=== PATIENT | male | born 1980 | race Caucasian/White ===

== ENCOUNTER 2025-01-23 06:17 | Emergency (ER) | payer OTHER ==
[2025-01-23] MEDS: KETOROLAC 15 MG/ML 1 ML VIAL IVP STA (06:41)
[2025-01-23] MEDS: diphenhydrAMINE 50 MG/ML 1 ML VIAL IVP STA (06:42)
[2025-01-23] MEDS: ONDANSETRON 4 MG/2 ML VIAL IVP STA (06:42)
--- NOTE | 2025-01-23 06:42 | ED ---
Abdominal Pain HPI - General Chief Complaint: Abdominal Pain Stated Complaint: Abdominal pain Time Seen by Provider: 01/23/25 06:19 Source: patient, EMS, RN notes reviewed Mode of arrival: EMS Limitations: no limitations - History of Present Illness Initial Comments: This is a 44-year-old male who presents to the emergency department for lower abdominal pain. Patient states that yesterday evening he started to develop pain in the lower abdomen followed by nausea and vomiting. States that overnight the pain intensified and he has been unable to keep anything down. His last bowel movement was a week ago. States that he is no longer passing gas. Denies any history of similar pain in the past. He is at [facility] for fentanyl and cocaine abuse and has been there for a week. MD Complaint: abdominal pain - Related Data Previous Rx's Medication Instructions Recorded Metoclopramide [Reglan] 10 mg PO Q6H PRN #20 tab 01/23/25 Ondansetron Odt [Zofran Odt] 4 mg PO Q8HR PRN #20 tab 01/23/25 polyethylene glycoL 3350 17 gm PO DAILY PRN #255 gm 01/23/25 [Polyethylene Glycol 3350] Allergies Allergy/AdvReac Type Severity Reaction Status Date / Time No Known Allergies Allergy Verified 01/23/25 06:34 Review of Systems ROS Statement: Those systems with pertinent positive or pertinent negative responses have been documented in the HPI. ROS Other: All systems not noted in ROS Statement are negative. Past Medical History Past Medical History: No Reported History History of Any Multi-Drug Resistant Organisms: None Reported Past Surgical History: Appendectomy Smoking Status: Current every day smoker Past Alcohol Use History: None Reported Past Drug Use History: Cocaine General Exam Limitations: no limitations General appearance: alert, in no apparent distress Head exam: Present: atraumatic, normocephalic, normal inspection Respiratory exam: Present: normal lung sounds bilaterally. Absent: respiratory distress, wheezes, rales, rhonchi, stridor Cardiovascular Exam: Present: regular rate, normal rhythm GI/Abdominal exam: Present: soft, tenderness (Lower abdomen), normal bowel sounds. Absent: distended Neurological exam: Present: alert, oriented X3, CN II-XII intact Psychiatric exam: Present: normal affect, normal mood Skin exam: Present: warm, dry, intact, normal color. Absent: rash Course Vital Signs 01/23/25 01/23/25 01/23/25 06:29 09:28 09:45 Temperature 99.2 F 98.5 F Pulse Rate 63 Respiratory 18 16 Rate Blood Pressure 116/67 116/70 O2 Sat by Pulse 98 Oximetry Medical Decision Making - Medical Decision Making This is a 44 year old male who presents to the emergency department for abdominal pain. Was pt. sent in by a medical professional or institution? @ -No Did you speak to anyone other than the patient for history? @ -No Did you review nursing and triage notes? @ -Yes, and I agree, it is accurate with regards to the patient's symptoms. Were old charts reviewed? @ -No Differential Diagnosis? @ -Differential Abdominal Pain Men: Appendicitis, cholecystitis, diverticulosis, ischemic bowel, pancreatitis, hepatitis, UTI, gastroenteritis, AAA, incarcerated hernia, bowel obstruction, constipation, inflammatory bowel, hepatitis, peptic ulcer disease, splenic i nfarction, perforated viscus, testicular torsion, this is not meant to be an all-inclusive list EKG interpreted by me (3pts min.)? @ -Not obtained X-rays interpreted by me (1pt min.)? @ -Not obtained CT interpreted by me (1pt min.)? @ -CT scan of the abdomen and pelvis obtained. My interpretation identifies fluid-filled small bowel loops. U/S interpreted by me (1pt. min.)? @ -Not obtained What testing was considered but not performed? (CT, X-rays, U/S, labs)? Why? @ -None What meds were considered but not given? Why? @ -None Did you discuss the management of the patient with other professionals? @ -No Did you reconcile home meds? @ -No Was smoking cessation discussed for >3mins.? @ -No Was critical care preformed (if so, how long)? @ -No Were there social determinants of health that impacted care today? How? (Homel essness, low income, unemployed, alcoholism, drug addiction, transportation, low edu. Level, literacy, decrease access to med. care, senior living, rehab)? @ -Rehab, who sent the patient in for evaluation. Was there de-escalation of care discussed even if they declined? (Discuss DNR or withdrawal of care, Hospice)? @ -No What co-morbidities impacted this encounter? (DM, HTN, Smoking, COPD, CAD, Cancer, CVA, Hep., AIDS, mental health diagnosis, sleep apnea, morbid obesity)? @ -Drug addiction Was patient admitted / discharged? @ -Discharged. Lab work demonstrates mildly elevated LFTs and is otherwise unremarkable. CT scan of the abdomen and pelvis demonstrates numerous prominent fluid-filled small bowel loops throughout the abdomen suggesting a generalized ileus or enteritis. Some liquid stool also extends into the right side of the colon. He is also noted to have a borderline bile duct. They advised that this may be chronic. AST and ALT are mildly elevated. Bilirubin and alkaline phosphatase are within normal limits. This is unlikely to be related to the patient's symptoms. Nausea and pain were well-controlled. Milk molasses enema administered and he had a large bowel movement afterwards. States that he felt significantly improved after having the bowel movement. Prescription for Zofran , Reglan, and MiraLAX provided with dosing instructions reviewed. Patient discharged back to [facility] in stable condition. Case discussed with ED attending Dr. Sepulveda. Return precautions reviewed in depth, the patient is instructed to return to the emergency department with any new, worsening, or concerning symptoms. Patient verbalized understanding. Undiagnosed new problem with uncertain prognosis? @ -None Drug Therapy requiring intensive monitoring for toxicity (Heparin, Nitro, Insulin, Cardizem)? @ -None Were any procedures done? @ -None Diagnosis/symptom? @ -Abdominal pain, enteritis, constipation, nausea and vomiting Acute, or Chronic, or Acute on Chronic? @ -Acute Uncomplicated (without systemic symptoms) or Complicated (systemic symptoms)? @ -Uncomplicated Side effects of treatment? @ -None Exacerbation, Progression, or Severe Exacerbation] @ -Not applicable Poses a threat to life or bodily function? @ -No - Lab Data Result diagrams: 01/23/25 06:40 01/23/25 06:40 Lab Results 01/23/25 01/23/25 01/23/25 Range/Units 06:40 06:40 06:40 WBC 9.11 (4.50-10.00) 10*3/uL RBC 5.41 (4.40-5.60) 10*6/uL Hgb 15.1 (13.0-17.0) g/dL Hct 44.6 (39.6-50.0) % MCV 82.4 (80.0-97.0) fL MCH 27.9 (27.0-32.0) pg MCHC 33.9 (32.0-37.0) g/dL Plt Count 168 (140-440) 10*3/uL MPV 11.4 (9.5-12.2) fL Immature Gran % (Auto) 0.7 % Neutrophils % 86.9 % Lymphocytes % 7.4 % Monocytes % 4.6 % Eosinophils % 0.2 % Basophils % 0.2 % Immature Gran # 0.06 H (0.00-0.04) 10*3/uL Neutrophils # 7.92 H (1.80-7.70) 10*3/uL Lymphocytes # 0.67 L (0.90-5.00) 10*3/uL Monocytes # 0.42 (0.20-1.00) 10*3/uL Eosinophils # 0.02 L (0.04-0.35) 10*3/uL Basophils # 0.02 (0.00-0.10) 10*3/uL Sodium 136 L (137-145) mmol/L Potassium 4.5 (3.5-5.1) mmol/L Chloride 104 (98-107) mmol/L Carbon Dioxide 26 (22-30) mmol/L Anion Gap 6 mmol/L BUN 20 (9-20) mg/dL Creatinine 0.57 L (0.66-1.25) mg/dL Est GFR (CKD-EPI)AfAm >90 (>60 ml/min/1.73 sqM) Est GFR (CKD-EPI)NonAf >90 (>60 ml/min/1.73 sqM) Glucose 107 H (74-99) mg/dL Plasma Lactic Acid Denis (0.7-2.0) mmol/L Calcium 9.5 (8.4-10.2) mg/dL Total Bilirubin 1.3 (0.2-1.3) mg/dL AST 68 H (17-59) U/L ALT 131 H (4-49) U/L Alkaline Phosphatase 68 (38-126) U/L Total Protein 7.5 (6.3-8.2) g/dL Albumin 4.2 (3.5-5.0) g/dL Amylase 61 (30-110) U/L Lipase 120 (23-300) U/L Urine Color Light Yellow Urine Appearance Clear (Clear) Urine pH 7.0 (5.0-8.0) Ur Specific [place] 1.020 (1.001-1.035) Urine Protein Negative (Negative) Urine Glucose (UA) Negative (Negative) Urine Ketones Negative (Negative) Urine Blood Negative (Negative) Urine Nitrite Negative (Negative) Urine Bilirubin Negative (Negative) Urine Urobilinogen <2.0 (<2.0) mg/dL Ur Leukocyte Esterase Negative (Negative) 01/23/25 Range/Units 06:40 WBC (4.50-10.00) 10*3/uL RBC (4.40-5.60) 10*6/uL Hgb (13.0-17.0) g/dL Hct (39.6-50.0) % MCV (80.0-97.0) fL MCH (27.0-32.0) pg MCHC (32.0-37.0) g/dL Plt Count (140-440) 10*3/uL MPV (9.5-12.2) fL Immature Gran % (Auto) % Neutrophils % % Lymphocytes % % Monocytes % % Eosinophils % % Basophils % % Immature Gran # (0.00-0.04) 10*3/uL Neutrophils # (1.80-7.70) 10*3/uL Lymphocytes # (0.90-5.00) 10*3/uL Monocytes # (0.20-1.00) 10*3/uL Eosinophils # (0.04-0.35) 10*3/uL Basophils # (0.00-0.10) 10*3/uL Sodium (137-145) mmol/L Potassium (3.5-5.1) mmol/L Chloride (98-107) mmol/L Carbon Dioxide (22-30) mmol/L Anion Gap mmol/L BUN (9-20) mg/dL Creatinine (0.66-1.25) mg/dL Est GFR (CKD-EPI)AfAm (>60 ml/min/1.73 sqM) Est GFR (CKD-EPI)NonAf (>60 ml/min/1.73 sqM) Glucose (74-99) mg/dL Plasma Lactic Acid Denis 1.4 (0.7-2.0) mmol/L Calcium (8.4-10.2) mg/dL Total Bilirubin (0.2-1.3) mg/dL AST (17-59) U/L ALT (4-49) U/L Alkaline Phosphatase (38-126) U/L Total Protein (6.3-8.2) g/dL Albumin (3.5-5.0) g/dL Amylase (30-110) U/L Lipase (23-300) U/L Urine Color Urine Appearance (Clear) Urine pH (5.0-8.0) Ur Specific [place] (1.001-1.035) Urine Protein (Negative) Urine Glucose (UA) (Negative) Urine Ketones (Negative) Urine Blood (Negative) Urine Nitrite (Negative) Urine Bilirubin (Negative) Urine Urobilinogen (<2.0) mg/dL Ur Leukocyte Esterase (Negative) - Radiology Data Radiology results: report reviewed, image reviewed Disposition Clinical Impression: Abdominal pain, Constipation, Nausea and vomiting, Enteritis Disposition: HOME SELF-CARE Instructions (If sedation given, give patient instructions): Abdominal Pain (ED), Enteritis (ED) Additional Instructions: Return to the emergency department with any new, worsening, or concerning symptoms. You can have the Zofran up to every 8 hours as needed for nausea and vomiting and the Reglan up to every 6 hours as needed for nausea and vomiting. Take the MiraLAX daily until you start to have regular bowel movements. Slowly advance your diet as tolerated and remain well-hydrated. Prescriptions: polyethylene glycoL 3350 [Polyethylene Glycol 3350] 17 gm PO DAILY PRN #255 gm PRN Reason: Constipation Metoclopramide [Reglan] 10 mg PO Q6H PRN #20 tab PRN Reason: Nausea And Vomiting Ondansetron Odt [Zofran Odt] 4 mg PO Q8HR PRN #20 tab PRN Reason: Nausea And Vomiting Is patient prescribed a controlled substance at d/c from ED?: No Referrals: None,Stated [Primary Care Provider] - 1-2 days Time of Disposition: 09:37
[2025-01-23 07:02] LABS: Basophils # (A) 0.02 10*3/uL (0.00-0.10); Basophils % (A) 0.2 %; Eosinophils # (A) 0.02 10*3/uL (0.04-0.35); Eosinophils % (A) 0.2 %; HCT 44.6 % (39.6-50.0); HGB 15.1 g/dL (13.0-17.0); Lymphocytes # (A) 0.67 10*3/uL (0.90-5.00); Lymphocytes % (A) 7.4 %; MCH 27.9 pg (27.0-32.0); MCHC 33.9 g/dL (32.0-37.0); MCV 82.4 fL (80.0-97.0); Mean Platelet Volume 11.4 fL (9.5-12.2); Monocytes # (A) 0.42 10*3/uL (0.20-1.00); Monocytes % (A) 4.6 %; Neutrophils # (A) 7.92 10*3/uL (1.80-7.70); Neutrophils % (A) 86.9 %; Platelet Count 168 10*3/uL (140-440); RBC 5.41 10*6/uL (4.40-5.60); RDW 14.2 % (11.5-14.5); WBC 9.11 10*3/uL (4.50-10.00)
[2025-01-23] MEDS: ACETAMINOPHEN IV (For NPO) 1,000 MG in EMPTY BAG 1 BAG IVPB STA (07:11)
[2025-01-23 07:15] LABS: African American GFR (CKD) >90 (>60 ml/min/1.73 sqM); Albumin 4.2 g/dL (3.5-5.0); Alkaline Phosphatase 68 U/L (38-126); Amylase 61 U/L (30-110); Anion Gap 6 mmol/L; Blood Urea Nitrogen 20 mg/dL (9-20); Calcium 9.5 mg/dL (8.4-10.2); Carbon Dioxide 26 mmol/L (22-30); Chloride 104 mmol/L (98-107); Glucose 107 mg/dL (74-99); Lipase 120 U/L (23-300); Non-African American GFR(CKD) >90 (>60 ml/min/1.73 sqM); Sodium 136 mmol/L (137-145); Total Bilirubin 1.3 mg/dL (0.2-1.3); Total Protein 7.5 g/dL (6.3-8.2)
[2025-01-23 07:17] LABS: ALT 131 U/L (4-49); AST 68 U/L (17-59); Potassium 4.5 mmol/L (3.5-5.1)
[2025-01-23] MEDS: LACTATED RINGERS 1,000 ML IV ONE (07:37)
--- NOTE | 2025-01-23 07:37 | CT ---
EXAMINATION TYPE: CT abdomen pelvis w con DATE OF EXAM: 01/23/2025 7:14 AM COMPARISON: None. CLINICAL INDICATION: Male, 44 years old with history of Right sided abdominal pain; abdominal pain an d vomiting TECHNIQUE: CT of the abdomen and pelvis after administration of IV contrast. Delayed images through t he kidneys and coronal/sagittal reconstructions performed. Contrast used:100ml mL of Isovue 300 with IV Contrast, CT DLP: 860.5 mGycm, Automated exposure control for dose reduction was used. FINDINGS: LOWER CHEST: Some dependent atelectasis at the posterior lung bases. ABDOMEN LIVER: Liver mildly enlarged at 18.9 cm. Tiny 7 mm right liver lobe cyst. Portal venous system is pat ent. GALLBLADDER AND BILE DUCTS: Bile duct upper limits of normal in caliber at 5 mm, somewhat unusual giv en patient's age. The gallbladder is also borderline hydropic at 3.9 cm wide. No surrounding inflamma tion. No internal filling defect is identified. PANCREAS: Unremarkable. SPLEEN: Enlarged 15.8 cm measured on coronal series. ADRENAL GLANDS: Unremarkable. KIDNEYS AND URETERS: Tiny 9 mm cortical cyst left kidney. Symmetric uptake and excretion of contrast from both sides. No hydronephrosis. PELVIS BLADDER: No evidence for wall thickening or mass given limitations of exam. REPRODUCTIVE: Unremarkable. ABDOMEN & PELVIS STOMACH AND BOWEL: No evidence of bowel obstruction. Numerous prominent fluid-filled small bowel loop s are present throughout the abdomen with some liquid stool extending into the right side of the colo n. Mild to moderate stool throughout the remainder of the colon especially within the sigmoid colon. While the appendix is not discretely visualized, no convincing findings of acute appendicitis in the right lower quadrant. PERITONEUM/RETROPERITONEUM: No evidence of pneumoperitoneum or free fluid. VASCULATURE: No evidence of aortic aneurysm. MUSCULOSKELETAL: Incidental left L5 hemisacralization. This contributes to some accelerated degenerat nicola disc disease, mild at this time above at L4-L5. LYMPH NODES: No gross evidence for lymphadenopathy. SOFT TISSUE/ABDOMINAL WALL: Unremarkable IMPRESSION: 1. The bile duct is borderline in caliber at 5 mm, somewhat unusual given patient's age. It may be c hronic for the patient. Correlate with alkaline phosphatase and bilirubin levels to exclude the possi bility of early biliary obstruction. 2. Numerous prominent fluid-filled small bowel loops throughout the abdomen suggesting a generalized ileus or enteritis. Some liquid stool also extends into the right side of the colon. 3. Hepatosplenomegaly (liver 18.9 cm and spleen 15.8 cm). Clinically correlate. [facility], , 01/23/2025 7:35 AM
[2025-01-23 09:05] LABS: Appearance,Urine Clear (Clear); Bilirubin,Urine Negative (Negative); Blood,Urine Negative (Negative); Color,Urine Light Yellow; Glucose,Urine (UA) Negative (Negative); Ketones,Urine Negative (Negative); Leukocyte Esterase,Urine Negative (Negative); Nitrite,Urine Negative (Negative); Protein,Urine Negative (Negative); Urobilinogen,Urine <2.0 mg/dL (<2.0)
[2025-01-23 09:29] VITALS: BP 116/70; PULSE 63; RESP 16
[2025-01-23 09:56] VITALS: TEMP 98.5
== END 2025-01-23 12:30 | disposition home or self-care (01) ==
LOC: EC 06:17
DX: K59.00 Constipation, unspecified (principal); K52.9 Noninfective gastroenteritis and colitis, unspecified; R74.01 Elevation of levels of liver transaminase levels; F17.200 Nicotine dependence, unspecified, uncomplicated; Z86.59 Personal history of other mental and behavioral disorders
CPT/HCPCS: 36415; 80053; 82150; 83605; 83690; 85025; 81003; 74177; 99284; 96365; 96375 ×3; 96361; J1200; J2405; J0131; J1885; Q9967